=== PATIENT | female | born 1990 | race Hispanic/Latino ===

== ENCOUNTER 2019-01-29 17:42 | Emergency (ER) | payer SELFPAY ==
--- NOTE | 2019-01-29 18:46 | ER ---
Nurse's Notes [facility] Name: Francisca Dockery Age: 29 yrs Sex: Female : 1990 Arrival Date: 01/29/2019 Time: 17:45 Bed 12 Private MD: Diagnosis: Acute sinusitis Presentation: 01/29 17:45 Presenting complaint: Patient states: i have this sore throat, ear pain and fever that hj started 2 days ago; took TheraFlu daytime;. Transition of care: patient was not received from another setting of care. Onset of symptoms was January 29, 2019. Risk Assessment: Do you want to hurt yourself or someone else? Patient reports no desire to harm self or others. Initial Sepsis Screen: Does the patient meet any 2 criteria? No. Patient's initial sepsis screen is negative. Does the patient have a suspected source of infection? No. Patient's initial sepsis screen is negative. Care prior to arrival: None. 17:45 Method Of Arrival: Ambulatory 17:45 Acuity: CHEN 4 hj Triage Assessment: 17:45 General: Appears in no apparent distress. uncomfortable, Behavior is calm, cooperative, hj appropriate for age. 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 - Social history:: Smoking status: Patient/guardian denies using tobacco, Patient/guardian denies using alcohol. - Ebola Screening: : Patient negative for fever greater than or equal to 101.5 degrees Fahrenheit, and additional compatible Ebola Virus Disease symptoms Patient denies exposure to infectious person Patient denies travel to an Ebola-affected area in the 21 days before illness onset. Screenin:45 Abuse screen: Denies threats or abuse. Denies injuries from another. Nutritional hj screening: No deficits noted. Tuberculosis screening: No symptoms or risk factors identified. Fall Risk None identified. Assessment: 17:45 Pain: Complains of pain in throat. Respiratory: Airway is patent Respiratory effort is hj even, unlabored, Respiratory pattern is regular, symmetrical, Breath sounds are clear. EENT: Throat. Vital Signs: 17:47 BP 109 / 63; Pulse 101; Resp 18; Temp 99.0(TE); Pulse Ox 99% on R/A; Weight 55.79 kg; hj Height 5 ft. 0 in. (152.40 cm); Pain 8/10; 17:47 Body Mass Index 24.02 (55.79 kg, 152.40 cm) hj ED Course: 17:45 Patient arrived in ED. mr 17:45 Patient has correct armband on for positive identification. Bed in low position. Call hj light in reach. Side rails up X 1. 17:46 [facility]C [facility]. kb 17:46 Darien Richmond MD is Attending Physician. kb 17:46 Triage completed. hj 17:47 Arm band placed on right wrist. hj 18:10 Salo Ponce, RN is Primary Nurse. hj 18:48 No provider procedures requiring assistance completed. Patient did not have IV access hj during this emergency room visit. Administered Medications: No medications were administered Outcome: 18:46 Discharge ordered by MD. kb 18:48 Discharged to home ambulatory. hj 18:48 Condition: stable 18:48 Discharge instructions given to patient, Instructed on discharge instructions, follow up and referral plans. medication usage, Demonstrated understanding of instructions, follow-up care, medications, Prescriptions given X 1. 18:51 Patient left the ED. Signatures: Anna Story FNP-C FNP-Meño Ni Marcus mr Salo Ponce, RN RN hj Corrections: (The following items were deleted from the chart) 17:49 17:47 Pulse 101bpm; Resp 18bpm; Pulse Ox 99% RA; Temp 99.0F Temporal; 55.79 kg; Height hj 5 ft. 0 in.; BMI: 24.0; Pain 8/10; hj
--- NOTE | 2019-01-29 18:46 | EDPHYS ---
Physician Documentation [facility] Name: Francisca Dockery Age: 29 yrs Sex: Female : 1990 Arrival Date: 01/29/2019 Time: 17:45 Bed 12 Private MD: ED Physician Darien Richmond HPI: 01/29 20:11 This 29 yrs old Female presents to ER via Ambulatory with complaints of Sore kb Throat, Ear Pain, Fever. 20:11 The patient presents with sore throat. The patient describes throat pain as constant. kb Onset: The symptoms/episode began/occurred 3 day(s) ago, and became worse today. Severity of symptoms: At their worst the symptoms were moderate, in the emergency department the symptoms are unchanged. Modifying factors: The symptoms are alleviated by nothing, the symptoms are aggravated by swallowing, Patient's oral intake status: limited fluid intake, limited food intake. Associated signs and symptoms: Pertinent positives: chills, earache, nausea, rhinorrhea, Sore throat vomiting. The patient has not experienced similar symptoms in the past. The patient has not recently seen a physician. 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 - Social history:: Smoking status: Patient/guardian denies using tobacco, Patient/guardian denies using alcohol. - Ebola Screening: : Patient negative for fever greater than or equal to 101.5 degrees Fahrenheit, and additional compatible Ebola Virus Disease symptoms Patient denies exposure to infectious person Patient denies travel to an Ebola-affected area in the 21 days before illness onset. ROS: 20:11 Neck: Negative for injury, pain, and swelling, Cardiovascular: Negative for chest pain, kb palpitations, and edema, Respiratory: Negative for shortness of breath, cough, wheezing, and pleuritic chest pain, Back: Negative for injury and pain, : Negative for injury, bleeding, discharge, and swelling, MS/Extremity: Negative for injury and deformity, Skin: Negative for injury, rash, and discoloration, Neuro: Negative for headache, weakness, numbness, tingling, and seizure. 20:11 Constitutional: Positive for body aches, chills, fatigue, malaise. 20:11 ENT: Positive for ear pain, rhinorrhea, sore throat. 20:11 Abdomen/GI: Positive for nausea and vomiting, Negative for abdominal pain, diarrhea, constipation, abdominal cramps, abdominal distension, anorexia. Exam: 20:11 Constitutional: This is a well developed, well nourished patient who is awake, alert, kb and in no acute distress. Head/Face: Normocephalic, atraumatic. ENT: Nares patent. No nasal discharge, no septal abnormalities noted. Tympanic membranes are normal and external auditory canals are clear. Oropharynx with no redness, swelling, or masses, exudates, or evidence of obstruction, uvula midline. Mucous membranes moist. Neck: Trachea midline, no thyromegaly or masses palpated, and no cervical lymphadenopathy. Supple, full range of motion without nuchal rigidity, or vertebral point tenderness. No Meningismus. Chest/axilla: Normal chest wall appearance and motion. Nontender with no deformity. No lesions are appreciated. Cardiovascular: Regular rate and rhythm with a normal S1 and S2. No gallops, murmurs, or rubs. Normal PMI, no JVD. No pulse deficits. Respiratory: Lungs have equal breath sounds bilaterally, clear to auscultation and percussion. No rales, rhonchi or wheezes noted. No increased work of breathing, no retractions or nasal flaring. Abdomen/GI: Soft, non-tender, with normal bowel sounds. No distension or tympany. No guarding or rebound. No evidence of tenderness throughout. Skin: Warm, dry with normal turgor. Normal color with no rashes, no lesions, and no evidence of cellulitis. MS/ Extremity: Pulses equal, no cyanosis. Neurovascular intact. Full, normal range of motion. Neuro: Awake and alert, GCS 15, oriented to person, place, time, and situation. Cranial nerves II-XII grossly intact. Motor strength 5/5 in all extremities. Sensory grossly intact. Cerebellar exam normal. Normal gait. Vital Signs: 17:47 BP 109 / 63; Pulse 101; Resp 18; Temp 99.0(TE); Pulse Ox 99% on R/A; Weight 55.79 kg; hj Height 5 ft. 0 in. (152.40 cm); Pain 03/01; 17:47 Body Mass Index 24.02 (55.79 kg, 152.40 cm) hj MDM: 17:56 Patient medically screened. kb 18:45 Data reviewed: vital signs, nurses notes. Data interpreted: Pulse oximetry: on room air kb is 99 %. Interpretation: normal. Counseling: I had a detailed discussion with the patient and/or guardian regarding: the historical points, exam findings, and any diagnostic results supporting the discharge/admit diagnosis, lab results, the need for outpatient follow up, a family practitioner, to return to the emergency department if symptoms worsen or persist or if there are any questions or concerns that arise at home. 01/29 17:49 Order name: Flu; Complete Time: 18:45 01/29 17:49 Order name: Strep; Complete Time: 18:30 01/29 18:26 Order name: Throat Culture EDMS Administered Medications: No medications were administered Disposition: 01/30 07:33 Co-signature as Attending Physician, Darien Richmond MD I agree with the assessment and kdr plan of care. Disposition: 01/29/19 18:46 Discharged to Home. Impression: Acute sinusitis. - Condition is Stable. - Discharge Instructions: Sinusitis, Adult, [id number]. - Prescriptions for Zofran 4 mg Oral Tablet - take 1 tablet by ORAL route every 6 hours As needed; 20 tablet. - Medication Reconciliation Form, Thank You Letter, Antibiotic Education, Prescription Opioid Use form. - Follow up: Emergency Department; When: As needed; Reason: Worsening of condition. Follow up: Private Physician; When: 2 - 3 days; Reason: Recheck today's complaints, Continuance of care, Re-evaluation by your physician. Signatures: Dispatcher [employer] EDMS Anna Story, Darien Velasquez MD MD [facility] Salo Ponce RN RN hj Corrections: (The following items were deleted from the chart) 01/29 18:51 18:46 01/29/2019 18:46 Discharged to Home. Impression: Acute sinusitis. Condition is hj Stable. Forms are Medication Reconciliation Form, Thank You Letter, Antibiotic Education, Prescription Opioid Use. Follow up: Emergency Department; When: As needed; Reason: Worsening of condition. Follow up: Private Physician; When: 2 - 3 days; Reason: Recheck today's complaints, Continuance of care, Re-evaluation by your physician. kb
[2019-01-29 19:06] VITALS: BP 109/63; TEMP 99; O2SAT 99
== END 2019-01-29 18:51 | disposition home or self-care (01) ==
LOC: ER 17:42
DX: J01.90 Acute sinusitis, unspecified (principal)
CPT/HCPCS: 87070; 87081; 87804; 99282

== ENCOUNTER 2020-04-25 04:23 | Emergency (ER) | payer OTHER, SELFPAY ==
[2020-04-25 05:13] LABS: Urine Appearance CLOUDY; Urine Bilirubin NEGATIVE (NEG); Urine Blood 3+ (NEG); Urine Color YELLOW; Urine Glucose NEGATIVE (NEG); Urine Protein TRACE (NEG); Urine Specific Gravity 1.025 (1.005-1.030)
[2020-04-25 05:15] LABS: Urine Microscopic Reflex ORDER UMIC
[2020-04-25 05:34] LABS: Basophils % 0.7 % (0-1.3); Hematocrit 36.5 % (36.0-45.0); Lymphocytes % 42.6 % (15.3-44.8); RBC Red Blood Cell Count 3.79 M/uL (3.86-4.86)
[2020-04-25 05:51] LABS: Urine Bacteria 20-50 /HPF (<20); Urine Culture Reflex Order REFLEXED; Urine Mucus 1+ /HPF (NONE SEEN); Urine Yeast FEW (NONE SEEN)
[2020-04-25 05:57] LABS: BUN Blood Urea Nitrogen 10 mg/dL (7-18); Bicarbonate 26 mmol/L (21-32); Glucose Level 91 mg/dL (74-106); HCG, Quantitative 9233 mIU/mL (1-3); Potassium 3.5 mmol/L (3.5-5.1); Sodium Level 140 mmol/L (136-145)
--- NOTE | 2020-04-25 06:34 | EDPHYS ---
Physician Documentation [facility] Name: Francisca Dockery Age: 30 yrs Sex: Female : 1990 Arrival Date: 04/25/2020 Time: 04:27 Bed 17 Private MD: ED Physician Ge Guevara HPI: 04/25 05:00 This 30 yrs old Female presents to ER via Ambulatory with complaints of mh7 Vaginal Bleeding, Cramping, +10 wks preg. 05:00 The patient presents with vaginal bleeding that is light. Onset: The symptoms/episode mh7 began/occurred yesterday. Modifying factors: The symptoms are alleviated by nothing, the symptoms are aggravated by nothing. Associated signs and symptoms: Pertinent positives: cramping, vaginal bleeding, Pertinent negatives: constipation, diarrhea, dyspareunia, dysuria, fever, hematuria, nausea, urinary frequency, vaginal discharge, vomiting. Severity of symptoms: At their worst the symptoms were moderate, earlier today, in the emergency department the symptoms have improved, moderately. 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 - Social history:: Smoking status: Patient denies any tobacco usage or history of. ROS: 05:00 Constitutional: Negative for fever, chills, and weight loss, Eyes: Negative for injury, mh7 pain, redness, and discharge, ENT: Negative for injury, pain, and discharge, Neck: Negative for injury, pain, and swelling, Cardiovascular: Negative for chest pain, palpitations, and edema, Respiratory: Negative for shortness of breath, cough, wheezing, and pleuritic chest pain, Abdomen/GI: Negative for abdominal pain, nausea, vomiting, diarrhea, and constipation, Back: Negative for injury and pain, MS/Extremity: Negative for injury and deformity, Skin: Negative for injury, rash, and discoloration, Neuro: Negative for headache, weakness, numbness, tingling, and seizure, Psych: Negative for depression, anxiety, suicide ideation, homicidal ideation, and hallucinations, Allergy/Immunology: Negative for hives, rash, and allergies, Endocrine: Negative for neck swelling, polydipsia, polyuria, polyphagia, and marked weight changes, Hematologic/Lymphatic: Negative for swollen nodes, abnormal bleeding, and unusual bruising. Exam: 05:00 Constitutional: This is a well developed, well nourished patient who is awake, alert, mh7 and in no acute distress. Head/Face: Normocephalic, atraumatic. Eyes: Pupils equal round and reactive to light, extra-ocular motions intact. Lids and lashes normal. Conjunctiva and sclera are non-icteric and not injected. Cornea within normal limits. Periorbital areas with no swelling, redness, or edema. Neck: Trachea midline, no thyromegaly or masses palpated, and no cervical lymphadenopathy. Supple, full range of motion without nuchal rigidity, or vertebral point tenderness. No Meningismus. Chest/axilla: Normal chest wall appearance and motion. Nontender with no deformity. No lesions are appreciated. Cardiovascular: Regular rate and rhythm with a normal S1 and S2. No gallops, murmurs, or rubs. Normal PMI, no JVD. No pulse deficits. Respiratory: Lungs have equal breath sounds bilaterally, clear to auscultation and percussion. No rales, rhonchi or wheezes noted. No increased work of breathing, no retractions or nasal flaring. Abdomen/GI: Soft, non-tender, with normal bowel sounds. No distension or tympany. No guarding or rebound. No evidence of tenderness throughout. Back: No spinal tenderness. No costovertebral tenderness. Full range of motion. Skin: Warm, dry with normal turgor. Normal color with no rashes, no lesions, and no evidence of cellulitis. MS/ Extremity: Pulses equal, no cyanosis. Neurovascular intact. Full, normal range of motion. Neuro: Awake and alert, GCS 15, oriented to person, place, time, and situation. Cranial nerves II-XII grossly intact. Motor strength 5/5 in all extremities. Sensory grossly intact. Cerebellar exam normal. Normal gait. Psych: Awake, alert, with orientation to person, place and time. Behavior, mood, and affect are within normal limits. 05:38 : CVA tenderness, is absent, Pelvic Exam: External exam: is normal, Speculum exam: mh7 scant bleeding, no cervicitis, os that is closed, no tissue in cervix is seen, no tissue in vagina is seen, bimanual exam reveals no cervical motion tenderness, os that is closed, gravid uterus, no uterine tenderness, no adnexa tenderness or masses bilaterally, discharge, is not appreciated, the nurse was present for the exam, Gravid exam: Bladder: is normal, Rectal exam: is refused by patient or guardian. Vital Signs: 04:39 BP 106 / 88; Pulse 90; Resp 18; Temp 98.1; Pulse Ox 99% ; Weight 51.26 kg; Height 5 ft. ea (152.40 cm); 04:48 BP 106 / 88; Pulse 80; Resp 18; Temp 98.1; Pulse Ox 99% on R/A; ll2 05:45 BP 100 / 62; Pulse 66; Resp 17; Pulse Ox 97% on R/A; ll2 06:27 BP 106 / 69; Pulse 99; Resp 18; Pulse Ox 98% on R/A; ll2 04:39 Body Mass Index 22.07 (51.26 kg, 152.40 cm) ea MDM: 04:57 Patient medically screened. mh7 06:35 Differential diagnosis: ectopic , Data reviewed: vital signs, nurses notes, arabella lab test result(s), radiologic studies, ultrasound. Data interpreted: quality assurance monitor body: rate is 99 beats/min, rhythm is regular, Pulse oximetry: on room air is 98 %. Counseling: I had a detailed discussion with the patient and/or guardian regarding: the historical points, exam findings, and any diagnostic results supporting the discharge/admit diagnosis, lab results, radiology results, the need for outpatient follow up, for definitive care, an OB/Gyne specialist. 04/25 04:57 Order name: Abo/rh Typing; Complete Time: 05:47 mh7 04/25 04:57 Order name: Basic Metabolic Panel; Complete Time: 05:58 mh7 04/25 04:57 Order name: CBC with Diff; Complete Time: 05:38 mh7 04/25 04:57 Order name: HCG-Quantitative; Complete Time: 05:58 mh7 04/25 04:58 Order name: Urinalysis; Complete Time: 05:58 lp1 04/25 05:17 Order name: Urine Microscopic Only; Complete Time: 05:58 [facility] 04/25 04:57 Order name: IV Saline Lock; Complete Time: 05:16 [facility] 04/25 04:57 Order name: Labs collected and sent; Complete Time: 05:16 [facility] 04/25 04:57 Order name: NPO; Complete Time: 05:16 [facility] 04/25 04:57 Order name: Urine Dipstick-Ancillary (obtain specimen); Complete Time: 05:16 [facility] 04/25 05:53 Order name: Urine Culture [facility] 04/25 06:31 Order name: Matter Eval Tm 1 [facility] 04/25 04:58 Order name: Urine Test (obtain specimen); Complete Time: 05:16 lp1 Administered Medications: 06:36 Drug: Rocephin 1 grams Route: IV; Rate: per protocol; Site: left antecubital; 2 06:36 Follow up: Response: No adverse reaction; IV Status: Completed infusion 2 Disposition: 04/25/20 06:34 Discharged to Home. Impression: Maternal care for intrauterine , Missed , Urinary tract infection, site not specified. - Condition is Stable. - Discharge Instructions: Incomplete Miscarriage, Miscarriage, Miscarriage, [id number]. - Prescriptions for Vitamin 27- 0.8 mg Oral Tablet - take 1 tablet by ORAL route once daily; 30 tablet. Augmentin 500- 125 mg Oral Tablet - take 1 tablet by ORAL route every 8 hours for 10 days; 21 tablet. - Medication Reconciliation Form, Thank You Letter, Antibiotic Education, Prescription Opioid Use form. - Follow up: Private Physician; When: 2 - 3 days; Reason: Recheck today's complaints, Continuance of care, Re-evaluation by your physician. Follow up: Leo Sheehan MD; When: 2 - 3 days; Reason: Recheck today's complaints, Re-evaluation by your physician. - Problem is new. - Symptoms have improved. Signatures: Dispatcher [employer] Ge Beltre MD MD cha Pena, Laura RN RN lp1 Danika Iniguez RN RN Mona Jurado RN RN 2 Alo Doll MD MD 7 Corrections: (The following items were deleted from the chart) 06:31 04:59 Transvaginal Ob+US.RAD.BRZ ordered. EDDC EDMS 06:37 06:34 04/25/2020 06:34 Discharged to Home. Impression: Maternal care for intrauterine arabella ; Missed . Condition is Stable. Forms are Medication Reconciliation Form, Thank You Letter, Antibiotic Education, Prescription Opioid Use. Follow up: Private Physician; When: 2 - 3 days; Reason: Recheck today's complaints, Continuance of care, Re-evaluation by your physician. Follow up: Leo Sheehan; When: 2 - 3 days; Reason: Recheck today's complaints, Re-evaluation by your physician. Problem is new. Symptoms have improved. arabella 06:49 06:37 04/25/2020 06:34 Discharged to Home. Impression: Maternal care for intrauterine ll2 ; Missed ; Urinary tract infection, site not specified. Condition is Stable. Discharge Instructions: Incomplete Miscarriage, Miscarriage, Miscarriage, [id number]. Prescriptions for Vitamin 27-0.8 mg Oral Tablet - take 1 tablet by ORAL route once daily; 30 tablet, Augmentin 500-125 mg Oral Tablet - take 1 tablet by ORAL route every 8 hours for 10 days; 21 tablet. and Forms are Medication Reconciliation Form, Thank You Letter, Antibiotic Education, Prescription Opioid Use. Follow up: Private Physician; When: 2 - 3 days; Reason: Recheck today's complaints, Continuance of care, Re-evaluation by your physician. Follow up: Leo Shehean; When: 2 - 3 days; Reason: Recheck today's complaints, Re-evaluation by your physician. Problem is new. Symptoms have improved. arabella
--- NOTE | 2020-04-25 06:34 | ER ---
Nurse's Notes [facility] Name: Francisca Dockery Age: 30 yrs Sex: Female : 1990 Arrival Date: 04/25/2020 Time: 04:27 Bed 17 Private MD: Diagnosis: Maternal care for intrauterine ;Missed ;Urinary tract infection, site not specified Presentation: 04/25 04:39 Chief complaint: Patient states: Pt reports she had pink mucus discharge yesterday, ea reports tonight it changed to brownish red and has mild cramping. Pt reports she is 10 weeks and 5 days . Coronavirus screen: At this time, the client does not indicate any symptoms associated with coronavirus-19. Ebola Screen: No symptoms or risks identified at this time. Initial Sepsis Screen: Does the patient meet any 2 criteria? No. Patient's initial sepsis screen is negative. Does the patient have a suspected source of infection? No. Patient's initial sepsis screen is negative. Risk Assessment: Do you want to hurt yourself or someone else? Patient reports no desire to harm self or others. Onset of symptoms was April 25, 2020. 04:39 Method Of Arrival: Ambulatory ea 04:39 Acuity: CHEN 3 ea Triage Assessment: 04:42 General: Appears in no apparent distress. Behavior is appropriate for age. Pain: ea Complains of pain in suprapubic area Pain currently is 2 out of 10 on a pain scale. Quality of pain is described as crampy. Neuro: Level of Consciousness is awake, alert, obeys commands, Oriented to person, place, time. : Reports vaginal bleeding that is brown. 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 - Social history:: Smoking status: Patient denies any tobacco usage or history of. Screenin:42 Abuse screen: Denies threats or abuse. Nutritional screening: No deficits noted. ea Tuberculosis screening: No symptoms or risk factors identified. Fall Risk None identified. Assessment: 04:45 General: Appears in no apparent distress. Behavior is calm, cooperative, appropriate ll2 for age. Pain: Complains of pain in right lower quadrant and left lower quadrant Pain currently is 4 out of 10 on a pain scale. Quality of pain is described as crampy. Neuro: Level of Consciousness is awake, alert, obeys commands, Oriented to person, place, time, situation. Cardiovascular: Capillary refill < 3 seconds Patient's skin is warm and dry. Respiratory: Airway is patent Respiratory effort is even, unlabored, Respiratory pattern is regular, symmetrical. GI: No signs and/or symptoms were reported involving the gastrointestinal system. : Reports vaginal bleeding that is bright red, since 1X today. EENT: No signs and/or symptoms were reported regarding the EENT system. Derm: Skin is intact, is healthy with good turgor, Skin is dry, Skin is pink, warm \T\ dry. Skin temperature is warm. Musculoskeletal: Circulation, motion, and sensation intact. Range of motion: intact in all extremities. 06:27 Reassessment: ERD to bedside discussing miscarriage with pt. ll2 Vital Signs: 04:39 BP 106 / 88; Pulse 90; Resp 18; Temp 98.1; Pulse Ox 99% ; Weight 51.26 kg; Height 5 ft. ea (152.40 cm); 04:48 BP 106 / 88; Pulse 80; Resp 18; Temp 98.1; Pulse Ox 99% on R/A; ll2 05:45 BP 100 / 62; Pulse 66; Resp 17; Pulse Ox 97% on R/A; ll2 06:27 BP 106 / 69; Pulse 99; Resp 18; Pulse Ox 98% on R/A; ll2 04:39 Body Mass Index 22.07 (51.26 kg, 152.40 cm) ea ED Course: 04:27 Patient arrived in ED. bp1 04:42 Triage completed. ea 04:43 Alo Doll MD is Attending Physician. 7 04:43 Arm band placed on right wrist. Patient placed in an exam room, on a stretcher, on ea pulse oximetry. 04:43 Patient has correct armband on for positive identification. Bed in low position. Call ea light in reach. Side rails up X 1. 04:45 Linscombe, Mona, RN is Primary Nurse. ll2 05:17 Initial lab(s) drawn, by ri, sent to lab. Urine collected: clean catch specimen, clear. ll2 Inserted saline lock: in left antecubital area, using aseptic technique. Blood collected. 05:39 Assist provider with pelvic exam: Set up pelvic tray. Performed by Alo Doll MD ll2 Patient tolerated well. 06:21 Attending Physician role handed off by [facility]o [facility] MD [facility] 06:21 Ge Guevara MD is Attending Physician. [facility] 06:30 Ultrasound completed. Patient tolerated well. Notified ED Physician krys. [email or web address] 06:31 Matter Eval Tm 1 In Process Unspecified. EDTX 06:33 Leo Sheehan MD is Referral Physician. [facility] 06:36 Urine Culture Sent. ll2 06:48 IV discontinued, intact, bleeding controlled, No redness/swelling at site. Pressure ll2 dressing applied. Administered Medications: 06:36 Drug: Rocephin 1 grams Route: IV; Rate: per protocol; Site: left antecubital; ll2 06:36 Follow up: Response: No adverse reaction; IV Status: Completed infusion ll2 Outcome: 06:34 Discharge ordered by . arabella 06:48 Discharged to home ambulatory. ll2 06:48 Condition: stable 06:48 Discharge instructions given to patient, Instructed on discharge instructions, follow up and referral plans. medication usage, Demonstrated understanding of instructions, follow-up care, medications, Prescriptions given X 2. 06:49 Patient left the ED. ll2 Signatures: Dispatcher [employer] EDTX Ge Guevara MD MD cha Antunez, Elena RN Juana Torres ea 3 Mona Hunt, CANDICE RN 2 Michelle Wiseman Maurice, MD MD [facility]
[2020-04-25] MEDS ORDERED: CEFTRIAXONE/SWI 1gm 1 GM/10 ML SYR ONE (06:42)
[2020-04-25 06:56] VITALS: TEMP 98.1
[2020-04-25 07:00] VITALS: BP 106/69; O2SAT 98
--- NOTE | 2020-04-25 11:38 | RAD REPORT ---
EXAM DESCRIPTION: US - Matter Alisha Tm 1 - 04/25/2020 6:31 am CLINICAL HISTORY: VAGINAL BLEEDING Early . COMPARISON: TRANSVAGINALOB dated 08/01/2013 FINDINGS: A single gestational sac is seen within the uterus. The sac shape is somewhat irregular. W ithin the sac is a single pole with crown-rump length of 3 cm, correlating to estimated gestati onal age of 9 weeks 3 days. Despite prolonged sonographic assessment, no cardiac activity could be identified. The placenta is not yet developed / visualized due to early gestational age. The maternal adnexa are within normal limits. The right ovary was obscured by bowel gas. IMPRESSION: The findings are most compatible with first trimester embryonic demise.
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
--- OUTSIDE RECORDS SUMMARY | 2020-04-29 00:21 | XMS REPORT | Summary of Care ---
:1990 Author Organization [facility] Address [address] [place] [address] Care Team Providers Name Role Phone Pcp, Patient Does Not Have A Primary Care Provider +1-000-00 0-0000 Reason for Visit Reason Comments NURSE VISIT Encounter Details Date Type Department Care Team Description 02/24/2020 Nurse Visit [facility]- Lexii Wooten ly N, ADOPTION WORKER [address] [place] [address] Missed menses (Primary Sab[place] Visit, [facility] Nurse Dx) [address] [place] [address] Allergies Not on Filedocumented as of this encounter (statuses as of 02/24/2020) Medications Not on filedocumented as of this encounter (statuses as of 02/24/2020) Active Problems Not on filedocumented as of this encounter (statuses as of 02/24/2020) Social History Tobacco Use Types Packs/Day Years Used Date Never Assessed Sex Assigned at Date Recorded Not on file documented as of this encounter Last Filed Vital Signs Vital Sign Reading Time Taken Comments Blood Pressure 114/70 02/24/2020 1:49 PM CDT Pulse 81 02/24/2020 1:49 PM CDT Temperature 36.3 C (97.4 F) 02/24/2020 1:49 PM CDT Respiratory Rate 18 02/24/2020 1:49 PM CDT Oxygen Saturation - - Inhaled Oxygen Concentration - - Weight 53.1 kg (117 lb 2 oz) 02/24/2020 1:49 PM CDT Height 152.4 cm (5') 02/24/2020 1:49 PM CDT Body Mass Index 22.87 02/24/2020 1:49 PM CDT documented in this encounter Progress Notes Inga Separ LVN - 02/24/2020 1:30 PM CDTMercatul Dockery is a 30 year old female Patient here for NOB, UPT negative, LMP 01/24/2020. Patient stated she had a positive UPT at home, informed she might be too early in . Advised to repeat UPT at home in 1 week and if positive tomake NOB appointment, verbalized understanding. documented in this encounter Plan of Treatment Health Maintenance Due Date Last Done Comments VARICELLA VACCINES ( of 2 - 01/24/1993 2-dose childhood series) Depression Screening 2004 DTaP,Tdap,and Td Vaccines (1 - 01/24/2011 Tdap) PAP SMEAR 01/24/2013 INFLUENZA VACCINE (#1) 2020 PNEUMOCOCCAL 0-64 YEARS COMBINED Aged Out No longer eligible based on SERIES patient's age to complete this topic documented as of this encounter Procedures Procedure Name Priority Date/Time Associated Diagnosis Comme nts POCT TEST Routine 02/24/2020 1:55 PM Missed menses Results for this CDT procedure are i n the results section. documented in this encounter Results POCT TEST (02/24/2020 1:55 PM CDT) Pathologist Sig nature POCT PREG Negative On board controls acceptable Yes with C Line POCT PREG LOT # POCT PREG TEST DATE Specimen Urine - URINE, CLEAN CATCH documented in this encounter Visit Diagnoses Diagnosis Missed menses - Primary Absence of menstruation documented in this encounter
--- OUTSIDE RECORDS SUMMARY | 2020-04-29 00:21 | XMS REPORT | Continuity of Care Document ---
:1990 Author Organization [facility] t Address [address] [place] [address] Care Team Providers Name Role Phone Rosalia Young MD Attending Clinician Rayna French Attending Clinician Ultrasound Attending Clinician Unavailable Amarilys ZAFAR Attending Clinician Doctor Unassigned, Name Attending Clinician Unavailable Arie Alcocer Attending Clinician Problems This patient has no known problems. Allergies, Adverse Reactions, Alerts This patient has no known allergies or adverse reactions. Medications This patient has no known medications. Procedures This patient has no known procedures. Encounters Start End Encounter Admission Attending Care Care Encounter Source Date/Time Date/Time Type Type Clinicians Facility Department ID 2020-04-27 2020-04-27 Routine Rosalia Young [facility] [id number] 09:33:14 11:27:48 Nino Mosquera [id number] Visit [place] [id number] [facility] [id number] [address] 2020-04-25 2020-04-25 Emergency Meli [facility] [id number] 14:42:00 18:12:00 Andria Mosquera [id number] [place] [id number] [place] [id number] 2020-04-14 2020-04-14 Tuck Pointer Helper Ultrasound, [facility] [id number] 15:08:30 15:49:33 Visit Kojo CUSTOMER SERVICE TECHNICIAN [id number] REGIONAL [id number] MATERNAL [id number] & CHILD 369 [facility] 2020-04-05 2020-04-05 Case Amarilys [facility] [id number] 00:00:00 00:00:00 Management Christiana Elyton [id number] [place] [id number] Professio [id number] [address] 2020-04-01 2020-04-01 Initial Rosalia Young [facility] [id number] 11:17:26 12:13:40 Nino Eveline [id number] Visit [place] [id number] Professio [id number] [address] 2020-04-01 2020-04-01 Orders Doctor BRET [id number] 00:00:00 00:00:00 Only Unassigned, JUAN [id number] [place] [facility] [id number] 2020-03-24 2020-03-24 Telephone Tim [facility] [id number] 00:00:00 00:00:00 Kylie Sargent CUSTOMER SERVICE TECHNICIAN [id number] [facility] [id number] MATERNAL [id number] & CHILD 107 [facility] 2020-03-10 2020-03-10 Orders Doctor BRET [id number] 00:00:00 00:00:00 Only Unassigned, JUAN [id number] [place] [facility] [id number] [id number] Results This patient has no known results.
--- OUTSIDE RECORDS SUMMARY | 2020-04-29 00:21 | XMS REPORT | Summary of Care ---
:1990 Author Organization [facility] - Health Address [address] [place] [address] Care Team Providers Name Role Phone Pcp, Patient Does Not Have A Primary Care Provider +1-000-00 0-0000 Encounter Details Date Type Department Care Team Description 02/24/2020 Orders Only [facility] Doctor Unassigned, No [address] [facility] [place] [address] [address] [place] [address] Allergies Not on Filedocumented as of this [...] of this encounter Last Filed Vital Signs Not on filedocumented in this encounter Plan of Treatment Date Type Specialty Care Team Description 02/24/2020 Initial Visit [facility] Lisa Wooten, GENERAL ACTIVITIES THERAPIST [address] [place], [place] [address] [phone] Health Maintenance Due Date Last Done Comments VARICELLA VACCINES (1 of 2 - 01/24/1993 2-dose childhood series) Depression Screening 2004 DTaP,Tdap,and Td Vaccines (1 - 01/24/2011 Tdap) PAP SMEAR 01/24/2013 INFLUENZA VACCINE (#1) 2020 PNEUMOCOCCAL 0-64 YEARS COMBINED Aged Out No longer eligible based on SERIES patient's age to complete this topic documented as of this encounter Procedures Procedure Name Priority Date/Time Associated Diagnosis Comme nts ASSIGNMENT OF BENEFITS Routine 02/24/2020 1:09 PM CDT documented in this encounter Results Not on filedocumented in this encounter Insurance Payer Benefit Plan / Subscriber ID Effective Phone Address T e Group Dates MEDICAID MEDICAID PENDING 2020-[address] P[place] [address] documented as of this encounter
--- OUTSIDE RECORDS SUMMARY | 2020-04-29 00:22 | XMS REPORT | Summary of Care ---
:1990 Author Organization [facility] Address [address] [place] [address] Care Team Providers Name Role Phone Kylie Dumont Primary Care Provider Reason for Referral (Routine) Status Reason Specialty Diagnoses / Referred By Referred To Procedures Contact Contact New Request Maternal Diagnoses Supervision of high risk in first trimester Kylie Dumont Medicine Procedures CONSULT MATERNAL MEDICINE ULTRASOUND Preferred Location: [facility] [address] [place] [address] Reason for Visit Reason Comments Appointment Encounter Details Date Type Department Care Team Description 03/24/[address] [facility] Kylie Marshall FNP Appointment [address] [facility] [address] [place] [address] [place] [address] [phone] Allergies No Known Allergiesdocumented as of this encounter (statuses as of 03/24/2020) Medications Medication Sig Dispensed Refills Start Date End Date Status vit Take 1 Packet by 30 Each 6 03/24/2020 Active 07-hcga-cdzox-dha mouth daily. (SELECT-OB + DHA) 29 mg iron-1 mg -250 mg combo packIndications: Supervision of high risk in first trimester documented as of this encounter (statuses as of 03/24/2020) Active Problems Problem Noted Date Supervision of high risk in first trimester 03/10/2020 Primigravida in first trimester 03/10/2020 Nausea 03/10/2020 Screening for viral disease 03/10/2020 Estimated Date of Delivery Comments Yes 10/30/2020 Based on last menstr ual period of 01/24/2020 (Exact Date) documented as of this encounter (statuses as of 03/24/2020) Social History Tobacco Use Types Packs/Day Years Used Date Former Smoker Quit: 02/19/20 20 Smokeless Tobacco: Former User Alcohol Use Drinks/Week oz/Week Comments Not Currently Estimated Date of Delivery Comments Yes 10/30/2020 Based on last menstr ual period of 01/24/2020 (Exact Date) Sex Assigned at Date Recorded Not on file COVID-19 Exposure Response Date Recorded In the last month, have you been in contact with No / Unsure 03/12/2020 9:22 AM CDT someone who was confirmed or suspected to have Coronavirus / COVID-19? documented as of this encounter Last Filed Vital Signs Not on filedocumented in this encounter Miscellaneous Notes Telephone Encounter - Inga Spear LVN - 03/24/2020 8:22 AM Princessmeli Dockery is a 30 year old female Patient informed of USG orders and pnv sent to pharmacy. Number given to USG department, verbalized understanding. elephone Encounter - Kylie Dumont FNP - 03/24/2020 8:19 AM CDTPlease inform patient that her USG has been ordered. The USG department in [place] will call patient for appointment or patient call call herself at [phone]. Please inform patient that her vitamins have been called to her chosen Pharmacy. Patient should pick them up in 3 days or the Pharmacy will restock the vitamins. Telephone Encounter - Inga Spear LVN - 03/24/2020 7:55 AM Princessmeli Dockery is a 30 year old female Patient called stating her medicaid is active and needs USG order. documented in this encounter Plan of Treatment Date Type Specialty Care Team Description 04/07/2020 Routine Visit [facility] Arie Dumont, RESAW FEEDER [address] [place], [place] [address] [phone] Health Maintenance Due Date Last Done Comments INFLUENZA VACCINE (#1) 2020 DTaP,Tdap,and Td Vaccines (1 - 03/10/2021 P ostponed from 01/24/2011 Tdap) (Alternative Keanu delines) Depression Screening 03/10/2021 03/10/2020 PAP SMEAR 03/10/2023 03/10/2020 PNEUMOCOCCAL 0-64 YEARS COMBINED Aged Out No longer eligible based on SERIES patient's age to complete this topic documented as of this encounter Results Not on filedocumented in this encounter Visit Diagnoses Diagnosis Supervision of high risk in rst trimester - Primary Unspecified high-risk documented in this encounter Insurance Payer Benefit Plan / Subscriber ID Effective Dates Phone Addre ss Type Group [facility] MEDICAID OF [id number] 2020-Present [phone] Medicaid [place] [id number] [place] [address] documented as of this encounter Advance Directives Name Relationship Healthcare Agent Communication Relationship Kaitlin Aguirre Other Health Care Agent
--- OUTSIDE RECORDS SUMMARY | 2020-04-29 00:22 | XMS REPORT | Summary of Care ---
:1990 Author Organization [facility] Address [address] [place] [address] Care Team Providers Name Role Phone Kylie Dumont DELIVERY MAN Primary Care Provider Reason for Visit Reason Comments New OB Visit Encounter Details Date Type Department Care Team Description 03/10/2020 Initial [facility]- Kylie Dumont upervision of high risk in first trimester (Primary Dx); Visit [facility] Primigravida in first trimester; [address] [place] [address]; [address] [place] [address] [phone] Allergies No Known Allergiesdocumented as of this [...] in this encounter Progress Notes Kylie Dumont, DELIVERY MAN - 03/10/2020 9:45 AM CDT Chief complaint: [...] file Gets together: Not on file Attends pentecostal service: Not on file Active member of [...] mother, father, and siblings. No inside cats. Jain preference: Advent. Social History Substance and Sexual Activity Sexual Activity Not on file Comment: last sexual intercourse 03/09/2020 Genetic Screen Autism / Mental Retardation: No Coleen Disease: No Congenital Heart Defect: No Cystic Fibrosis: No Down Syndrome: No Familial Dysautonomia: No Hemophilia or other Blood Disorders: No [place] Chorea: No Maternal Metabolic Disorder--specify (eg. Type [...] age. Normal hair distribution. No labial lesion. Patient Registrar present for the exam: ROSALVA Alexander student [...] Normal Pelvic Exam: Vulva: Normal Vagina: Normal Patient Registrar present for the exam: ROSALVA Alexander student [...] reviewed with patient. documented in this encounter Miscellaneous Notes Addendum Note - Anand Silva - 03/10/2020 9:45 AM CDT Addended by: ANAND SILVA on: 03/10/2020 11:37 AM Modules accepted: Orders documented in this encounter Plan of Treatment Date Type Specialty Care Team Description 04/07/2020 Routine Visit [facility] Arie Dumont FNP [address] [place], [place] [address] [phone] Name Type Priority Associated Diagnoses Date/Ti me PAP Smear-Liquid Based LAB Routine Supervision of hig h risk 03/10/2020 11:37 AM in first CDT trimester GC & CHLAMYDIA AMPLIFIED LAB Routine Supervision of h igh risk 03/10/2020 11:37 AM ASSAY in first CDT trimester TRICHOMONAS AMPLIFIED LAB Routine Supervision of high risk 03/10/2020 11:37 AM ASSAY in first CDT trimester CBC WITH DIFF LAB Routine Supervision of high risk 11:25 AM in first CDT trimester HEPATITIS B SURFACE LAB Routine Supervision of high r isk 03/10/2020 11:25 AM ANTIGEN in first CDT trimester HIV 1/2 AG-AB WITH REFLEX LAB Routine Supervision of high risk 03/10/2020 11:25 AM in first CDT trimester RUBELLA SCREEN (KATY) LAB Routine Supervision of hig h risk 03/10/2020 11:25 AM IGG in first CDT trimester GALV ONLY - SYPHILIS LAB Routine Supervision of high risk 03/10/2020 11:25 AM IGG/IGM in first CDT trimester URINE CULTURE LAB Routine Supervision of high risk 11:37 AM in first CDT trimester VZV ANTIBODY SCREEN LAB Routine Supervision of high r isk 03/10/2020 11:25 AM in first CDT trimester Glucose 1 Hour Post LAB Routine Supervision of high r isk 03/10/2020 11:25 AM Prandial in first CDT trimester SARS-COV-2 IGG LAB Routine Screening for viral 2019 11:25 AM disease CDT Name Type Priority Associated Diagnoses Order S [...] 03/10/2020, Prandial in first Expires: 03/10/2021 trimester Health Maintenance Due Date Last Done Comments [...] T ype Group Dates MEDICAID MEDICAID PENDING 2020-[address] [place] [address] documented as of this encounter Advance Directives Name Relationship Healthcare Agent Communication Relationship Kaitlin Aguirre Other Health Care Agent "
--- OUTSIDE RECORDS SUMMARY | 2020-04-29 00:22 | XMS REPORT | Summary of Care ---
:1990 Author Organization [facility] Address [address] [place] [address] Care Team Providers Name Role Phone Kylie Dumont PUNCH FINISHER Primary Care Provider Reason for Visit Reason Comments LAB WORK Encounter Details Date Type Department Care Team Description 03/12/2020 Endoscopy Technican Visit [facility]- Gemma Dumont, PUNCH FINISHER [address] [place] [address] Abnormal maternal [place] [facility], [address] [place] [address] Allergies No Known Allergiesdocumented as of this encounter (statuses as of 03/12/2020) Medications No known medicationsdocumented as of this encounter (statuses as of 03/12/2020) Active Problems Problem Noted Date Supervision of high risk in first trimester 03/10/2020 Primigravida in first trimester 03/10/2020 Nausea 03/10/2020 Screening for viral disease 03/10/2020 Estimated Date of Delivery Comments Yes 10/30/2020 Based on last menstr ual period of 01/24/2020 (Exact Date) documented as of this encounter (statuses as of 03/12/2020) Social History Tobacco Use Types Packs/Day Years Used Date Former Smoker Quit: 02/19/20 Smokeless Tobacco: Former User Alcohol Use Drinks/Week [...] 04/07/2020 Routine Visit [facility] Arie Dumont, PUNCH FINISHER [address] [place], [place] [address] [phone] Name Type Priority Associated Diagnoses Date/Ti me 3 HR GLUCOSE TOLERANCE LAB Routine Abnormal maternal 03/12/2020 9:10 AM CDT PANEL glucose tolerance, antepartum GLUCOSE FASTING LAB Routine Abnormal maternal 020 9:10 AM CDT glucose tolerance, antepartum 1 HR GLUCOSE TOLERANCE LAB Routine Abnormal maternal 03/12/2020 9:15 AM CDT TEST glucose tolerance, antepartum 2 HR GLUCOSE TOLERANCE LAB Routine Abnormal maternal 03/12/2020 10:15 AM CDT TEST glucose tolerance, antepartum 3 HR GLUCOSE TOLERANCE LAB Routine Abnormal maternal 03/12/2020 11:15 AM CDT TEST glucose tolerance, antepartum Health Maintenance Due Date Last Done Comments [...] filedocumented in this encounter Visit Diagnoses Diagnosis Abnormal maternal glucose tolerance, ant epartum documented in this encounter Insurance Payer Benefit Plan / Subscriber ID Effective Phone Address T ype Group Dates MEDICAID MEDICAID PENDING 2020-[address] [place] [address] documented as of this encounter Advance Directives Name Relationship Healthcare Agent Communication Relationship Kaitlin Aguirre Other Health Care Agent
--- OUTSIDE RECORDS SUMMARY | 2020-04-29 00:22 | XMS REPORT | Summary of Care ---
:1990 Author Organization [facility] Address [address] [place] [address] Care Team Providers Name Role Phone Kylie Dumont [facility] Primary Care Provider Reason for Visit Reason Comments Abnormal Lab Abnormal 1 hr Encounter Details Date Type Department Care Team Description 03/11/2020 Telephone [facility]- Kylie Dumont, Ab normal Lab (Abnormal [facility] 1 hr ) [address] [facility] [address] [place] [address] [place], [place] [phone] [address] [phone] Allergies No Known Allergiesdocumented as of this encounter (statuses as of 03/11/2020) Medications No known medicationsdocumented as of this encounter (statuses as of 03/11/2020) Active Problems Problem Noted Date Supervision of high risk in first trimester 03/10/2020 Primigravida in first trimester 03/10/2020 Nausea 03/10/2020 Screening for viral disease 03/10/2020 Estimated Date of Delivery Comments Yes 10/30/2020 Based on last menstr ual period of 01/24/2020 (Exact Date) documented as of this encounter (statuses as of 03/11/2020) Social History Tobacco Use Types Packs/Day Years [...] this encounter Miscellaneous Notes Telephone Encounter - Kylie Dumont FNP - 03/11/2020 7:57 AM CDTPlease inform patient that her 1 hr GTT was abnormal. Patient needs to RTC for 3 hr GTT as soon as possible. . Please give patient 3 hr GTT instructions ie NPO after midnight. documented in this encounter Plan of Treatment Date Type Specialty Care Team Description 04/07/2020 Routine Visit [facility] Arie Dumont FNP [address] [place] [address] [phone] Name Type Priority Associated Diagnoses Order S chedule 3 HR GLUCOSE TOLERANCE LAB Routine Abnormal maternal glucose Expected: 03/11/2020, PANEL tolerance, antepartum s: 03/11/2021 Health Maintenance Due Date Last Done Comments [...] Diagnosis Abnormal maternal glucose tolerance, ant epartum - Primary documented in this encounter Insurance Payer Benefit Plan / Subscriber ID Effective Phone Address T e Group Dates MEDICAID MEDICAID PENDING 2020-[address] Pending [place] [address] documented as of this encounter Advance Directives Name Relationship Healthcare Agent Communication Relationship Kaitlin Aguirre Other Health Care Agent
--- OUTSIDE RECORDS SUMMARY | 2020-04-29 00:22 | XMS REPORT | Summary of Care ---
:1990 Author Organization [facility] Address [address] [place] [address] Care Team Providers Name Role Phone Kylie Dumont [facility] Primary Care Provider Reason for Visit Reason Comments Abnormal Lab Abnormal 1 hr Encounter Details Date Type Department Care Team Description 03/11/2020 Telephone [facility]- Kylie Dumont, Ab normal Lab (Abnormal [facility] 1 hr ) [address] [facility] [address] [place] [address] [place], [place] [phone] [address] [phone] Allergies No Known Allergiesdocumented as of this [...] this encounter Miscellaneous Notes Telephone Encounter - Tom Mejía RN - 03/11/2020 10:00 AM CDTNotified patient of lab results-abnormal 1 hr GTT. Instructions given on 3 hr GTT including fasting and length of test. Pt scheduled for tomorrow at 0800 per request. COVID screening negative and reviewed clinic guidelines. TOM MEJÍA RN 03/11/2020 10:01 AM Telephone Encounter - Kylie Dumont FNP - 03/11/2020 7:57 AM CDTPlease inform patient that her 1 hr GTT was abnormal. Patient needs to RTC for 3 hr GTT as soon as possible. . Please give patient 3 hr GTT instructions ie NPO after midnight. documented in this encounter Plan of Treatment Date Type Specialty Care Team Description 03/12/2020 Critical Care Unit Nurse Visit [facility] Lab, [facility] 04/07/2020 Routine Visit [facility] Arie Dumont FNP [address] [place] [address] [phone] Name Type Priority Associated Diagnoses Order S [...] T ype Group Dates MEDICAID MEDICAID PENDING 2020-[address] Pending [place] [address] documented as of this encounter Advance Directives Name Relationship Healthcare Agent Communication Relationship Kaitlin Aguirre Other Health Care Agent
--- OUTSIDE RECORDS SUMMARY | 2020-04-29 00:22 | XMS REPORT | Summary of Care ---
:1990 Author Organization [facility] Address [address] [place] [address] Care Team Providers Name Role Phone Kylie Dumont Primary Care Provider Reason for Referral (Routine) Status Reason Specialty Diagnoses / Referred By Referred To Procedures Contact Contact New Request Maternal Diagnoses Supervision of high risk in first trimester Kylie Dumont Medicine Procedures CONSULT MATERNAL MEDICINE ULTRASOUND Preferred Location: [facility] [address] [place] [address] Reason for Visit Reason Comments Appointment Encounter Details Date Type Department Care Team Description [facility] 110[address] [facility] [address] [place] [address] [address] [place] [address] [phone] Allergies No Known Allergiesdocumented as of this encounter (statuses as of 03/24/2020) Medications Medication Sig Dispensed Refills Start Date End Date Status vit Take 1 Packet by 30 Each 6 03/24/2020 Active 05-pyax-tarms-dha mouth daily. (SELECT-OB + DHA) 29 mg [...] Telephone Encounter - Kylie Dumont FNP - 03/24/2020 8:19 AM CDTPlease inform patient that her USG has been ordered. The USG department in [place] will call patient for appointment or patient call call herself at [phone]. Please inform patient that her vitamins have been called to her chosen Pharmacy. Patient should pick them up in 3 days or the Pharmacy will restock the vitamins. Telephone Encounter - Inga Spear LVN - 03/24/2020 7:55 AM ESATMabdirahman Sarkis is a 30 year old female Patient called stating her medicaid is active and needs USG order. documented in this encounter Plan of Treatment Date Type Specialty Care Team Description 04/07/2020 Routine Visit OB Satellites Arie Dumont FNP [address] [place], [place] [address] [phone] Health Maintenance Due Date Last Done Comments [...] Effective Dates Phone Addre ss Type Group [employer] MEDICAID OF [id number] 2020-Present [phone] [address] Medicaid [place] [address] [place] [address] documented as of this encounter Advance Directives Name Relationship Healthcare Agent Communication Relationship Kaitlin Aguirre Other Health Care Agent
--- OUTSIDE RECORDS SUMMARY | 2020-04-29 00:23 | XMS REPORT | Summary of Care ---
:1990 Author Organization [facility] Address [address] [place] [address] Care Team Providers Name Role Phone Ginny Dumontmari GOLD Primary Care Provider Reason for Visit Reason Comments New Medication Encounter Details Date Type Department Care Team Description 04/05/2020 Case Management [facility] Women's Christiana Panda N ew Medication Healthcare- [place] CHARISMA [address] [place] [address], [address] [place] [address] [address] [address] [place] [address] [phone] Allergies No Known Allergiesdocumented as of this encounter (statuses as of 04/05/2020) Medications Medication Sig Dispensed Refills Start Date End Date Status vit Take 1 Packet 30 Each 6 03/24/2020 Ac tive 37-oiev-jlhof-dha by mouth daily. (SELECT-OB + DHA) 29 mg iron-1 mg -250 mg combo packIndications: Supervision of high risk in first trimester Nitrofurantoin&Nit. Take 1 capsule 14 capsule 0 04/01/2020 Active Macrocryst (MACROBID) by mouth 2 100 mg (two) times capsuleIndications: daily. Dysuria metroNIDAZOLE 500 mg Take 1 tablet 14 tablet 0 04/05/2020 Active tabletIndications: BV by mouth every (bacterial vaginosis) 12 (twelve) hours. cephALEXin 500 mg Take 1 capsule 14 capsule 0 04/05/2020 Active capsuleIndications: by mouth 4 Urinary tract (four) times infection without daily. hematuria, site unspecified fluconazole 200 mg Take 1 tablet 1 tablet 0 04/05/20202019 Active tabletIndications: by mouth daily Vaginal jj for 1 day. documented as of this encounter (statuses as of 04/05/2020) Active Problems Problem Noted Date Normal , first 03/10/2020 Nausea 03/10/2020 Screening for viral disease 03/10/2020 Estimated Date of Delivery Comments Yes 11/17/2020 Based on Ultrasound documented as of this encounter (statuses as of 04/05/2020) Resolved Problems Problem Noted Date Resolved Date Primigravida in first trimester 03/10/2020 04/01/20 documented as of this encounter (statuses as of 04/05/2020) Social History Tobacco Use Types Packs/Day Years Used Date Former Smoker Quit: 02/19/20 Smokeless Tobacco: Former User Alcohol Use Drinks/Week oz/Week Comments Not Currently Estimated Date of Delivery Comments Yes 11/17/2020 Based on Ultrasound Sex Assigned at Date Recorded Not on file COVID-19 Exposure Response Date Recorded In the last month, have you been in contact with No / Unsure 04/01/2020 11:17 AM CDT someone who was confirmed or suspected to have Coronavirus / COVID-19? documented as of this encounter Last Filed Vital Signs Not on filedocumented in this encounter Plan of Treatment Date Type Specialty Care Team Description 04/07/2020 Routine Visit OB Satellites Kylie Dumont, BUSINESS APPLICATIONS ANALYST [address] [place], [place] [address] 04/29/2020 Routine Visit Obstetrics & Rosalia Young MD Gynecology [address] [place] [address] [address] [place], [place] [address] [phone] 04/29/2020 Pump And Still Operator Visit Phlebotomy Rosalia Young MD [address] [place] [address] [address] [place] [address] [phone] 2, [facility] Health Maintenance Due Date Last Done Comments INFLUENZA VACCINE (#1) 2020 DTaP,Tdap,and Td Vaccines (1 03/10/2021 Pos tponed from 01/24/2011 - Tdap) (Alternative Keanu delines) Depression Screening 03/10/2021 03/10/2020 PAP SMEAR 03/10/2023 03/10/2020, 03/10/2020 PNEUMOCOCCAL 0-64 YEARS Aged Out No longe r eligible based COMBINED SERIES on patient's age to complete this to pic documented as of this encounter Results Not on filedocumented in this encounter Visit Diagnoses Diagnosis BV (bacterial vaginosis) - Primary Vaginitis and vulvovaginitis, unspecifie d Vaginal jj Candidiasis of vulva and vagina Urinary tract infection without hematuri a, site unspecified documented in this encounter Insurance Payer Benefit Plan / Subscriber ID Effective Dates Phone Addre ss Type Group [employer] MEDICAID OF [id number] 2020-Present [phone] [address] Medicaid [place] [id number] [place] [phone] documented as of this encounter Advance Directives Name Relationship Healthcare Agent Communication Relationship Kaitlin Aguirre Other Health Care Agent
--- OUTSIDE RECORDS SUMMARY | 2020-04-29 00:23 | XMS REPORT | Summary of Care ---
:1990 Author Organization [facility] - Health Address [address] [place] [address] Care Team Providers Name Role Phone Padma Dumontdoris Sargent [facility] Primary Care Provider Encounter Details Date Type Department Care Team Description 03/10/2020 Orders Only [facility] Doctor Unassigned, No [address] [facility] [place] [address] [address] [place] [address] Allergies No Known Allergiesdocumented as of this encounter (statuses as of 04/07/2020) Medications No known medicationsdocumented as of this encounter (statuses as of 04/07/2020) Active Problems Problem Noted Date Normal , first 03/10/2020 Nausea 03/10/2020 Screening for viral disease 03/10/2020 Estimated Date of Delivery Comments Yes 11/17/2020 Based on Ultrasound documented as of this encounter (statuses as of 04/07/2020) Resolved Problems Problem Noted Date Resolved Date Primigravida in first trimester 03/10/2020 04/01/20 20 documented as of this encounter (statuses as of 04/07/2020) Social History Tobacco Use Types Packs/Day Years [...] Treatment Date Type Specialty Care Team Description 04/29/2020 Routine Visit Obstetrics & Rosalia Young MD Gynecology [address] [place] [address] [address]. [address] [place], [place] [address] [phone] 04/29/2020 Tube Handler Visit Phlebotomy Rosalia Young MD [address] [place] [address] [address] [place] [address] [phone] 2, [facility] Health Maintenance Due Date Last Done Comments INFLUENZA VACCINE (#1) 2020 DTaP,Tdap,and Td Vaccines (1 03/10/2021 Pos tponed from 01/24/2011 - Tdap) (Alternative Keanu delines) Depression Screening 03/10/2021 03/10/2020 PAP SMEAR 03/10/2023 03/10/2020, 03/10/2020 PNEUMOCOCCAL 0-64 YEARS Aged Out No longe r eligible based COMBINED SERIES on patient's age to complete this to [facility] documented as of this encounter Procedures Procedure Name Priority Date/Time Associated Diagnosis Comme nts REPORT OF Routine 03/10/2020 12:01 AM CDT documented in this encounter Results Not on filedocumented in this encounter Insurance Payer Benefit Plan / Subscriber ID Effective Dates Phone Addre ss Type Group [facility] MEDICAID OF [id number] 2020-Present [phone] Medicaid [place] [id number] [place] [id number] documented as of this encounter Advance Directives Name Relationship Healthcare Agent Communication Relationship Kaitlin Aguirre Other Health Care Agent
--- OUTSIDE RECORDS SUMMARY | 2020-04-29 00:23 | XMS REPORT | Summary of Care ---
:1990 Author Organization [facility] Address [address] [place] [address] Care Team Providers Name Role Phone Kylie Dumont [facility] Primary Care Provider Reason for Visit Reason Comments ULTRASOUND (Routine) Status Reason Specialty Diagnoses / Referred By Referred To Procedures Contact Contact Closed Maternal Diagnoses Supervision of high risk in first trimester Kylie Dumont Medicine Procedures CONSULT MATERNAL MEDICINE ULTRASOUND Preferred Location: [facility] [address] [place] [address] Encounter Details Date Type Department Care Team Description 04/14/2020 [facility] Mcneill, Pr jing size-date Ultrasound- Eveline COLLINS discrepancy in first 110[address] [facility] [address] [place] [phone] Allergies No Known Allergiesdocumented as of this encounter (statuses as of 04/14/2020) Medications Medication Sig Dispensed Refills Start Date End Date Status vit Take 1 Packet by 30 Each 6 03/24/2020 Active 05-rxnu-vnagm-dha mouth daily. (SELECT-OB + DHA) 29 mg iron-1 mg -250 mg combo packIndications: Supervision of high risk in first trimester Nitrofurantoin&Nit. Take 1 capsule 14 capsule 0 04/01/2020 Active Macrocryst (MACROBID) by mouth 2 (two) 100 mg times daily. capsuleIndications: Dysuria metroNIDAZOLE 500 mg Take 1 tablet by 14 tablet 0 04/05/2020 Active tabletIndications: BV mouth every 12 (bacterial vaginosis) (twelve) hours. cephALEXin 500 mg Take 1 capsule 14 capsule 0 04/05/2020 Active capsuleIndications: by mouth 4 Urinary tract infection (four) times without hematuria, site daily. unspecified documented as of this encounter (statuses as of 04/14/2020) Active Problems Problem Noted Date Normal , first 03/10/2020 Nausea 03/10/2020 Screening for viral disease 03/10/2020 Estimated Date of Delivery Comments Yes 11/17/2020 Based on Ultrasound documented as of this encounter (statuses as of 04/14/2020) Resolved Problems Problem Noted Date Resolved Date Primigravida in first trimester 03/10/2020 04/01/20 20 documented as of this encounter (statuses as of 04/14/2020) Social History Tobacco Use Types Packs/Day Years Used Date Former Smoker Quit: 02/19/20 Smokeless Tobacco: Former User Alcohol Use Drinks/Week oz/Week Comments Not Currently Estimated Date of Delivery Comments Yes 11/17/2020 Based on Ultrasound Sex Assigned at Date Recorded Not on file COVID-19 Exposure Response Date Recorded In the last month, have you been in contact with No / Unsure 04/07/2020 5:28 PM CDT someone who was confirmed or suspected to have Coronavirus / COVID-19? documented as of this encounter Last Filed Vital Signs Not on filedocumented in this encounter Plan of Treatment Date Type Specialty Care Team Description 04/29/2020 Routine Visit Obstetrics & Rosalia Young MD Gynecology [address] [place] [address] [address] [place], [place] [address] [phone] 04/29/2020 Implant Coordinator Visit Phlebotomy Rosalia Young MD [address] [place] [address] [address] [place] [address] [phone] 2, [facility] Health Maintenance Due Date [...] filedocumented in this encounter Visit Diagnoses Diagnosis Uterine size-date discrepancy in first t rimester Uterine size date discrepancy, antepartu m condition or complication documented in this encounter Insurance Payer Benefit Plan / Subscriber ID Effective Dates Phone Addre ss Type Group [facility] MEDICAID OF [id number] 2020-Present [phone] [address] Medicaid [place] [id number] [place] [phone] documented as of this encounter Advance Directives Name Relationship Healthcare Agent Communication Relationship Kaitlin Aguirre Other Health Care Agent
--- OUTSIDE RECORDS SUMMARY | 2020-04-29 00:23 | XMS REPORT | Summary of Care ---
:1990 Author Organization [facility] - Health Address [address] [place] [address] Care Team Providers Name Role Phone Ginny Dumontmari Sargent [facility] Primary Care Provider Encounter Details Date Type Department Care Team Description 04/01/2020 Orders Only [facility] Doctor Unassigned, No 301 [facility] [place] [address] [address] [place] [address] Allergies No Known Allergiesdocumented as of this encounter (statuses as of 04/09/2020) Medications Medication Sig Dispensed Refills Start Date End Date Status vit Take 1 Packet by 30 Each 6 03/24/2020 Active 16-mjic-uqyne-dha mouth daily. (SELECT-OB + DHA) 29 mg iron-1 mg -250 mg combo packIndications: Supervision of high risk in first trimester Nitrofurantoin&Nit. Take 1 capsule by 14 capsule 0 04/01/2020 Active Macrocryst (MACROBID) mouth 2 (two) 100 mg times daily. capsuleIndications: Dysuria documented as of this encounter (statuses as of 04/09/2020) Active Problems Problem Noted Date Normal , first 03/10/2020 Nausea 03/10/2020 Screening for viral disease 03/10/2020 Estimated Date of Delivery Comments Yes 11/17/2020 Based on Ultrasound documented as of this encounter (statuses as of 04/09/2020) Resolved Problems Problem Noted Date Resolved Date Primigravida in first trimester 03/10/2020 04/01/20 20 documented as of this encounter (statuses as of 04/09/2020) Social History Tobacco Use Types Packs/Day Years [...] Treatment Date Type Specialty Care Team Description 04/14/2020 Operational Assistant Visit Maternal Medicine 04/29/2020 Routine Visit Obstetrics & Rosalia Young MD Gynecology [address] [place] [address] [address] [place], [place] [address] [phone] 04/29/2020 Operational Assistant Visit Phlebotomy Rosalia Young MD [address] [place] [address] [address] [place] [address] [phone] 2, [facility] Health Maintenance Due Date Last Done Comments INFLUENZA VACCINE (#1) 2020 DTaP,Tdap,and Td Vaccines (1 03/10/2021 Pos tponed from 01/24/2011 - Tdap) (Alternative Keanu delines) Depression Screening 03/10/2021 03/10/2020 PAP SMEAR 03/10/2023 03/10/2020, 03/10/2020 PNEUMOCOCCAL 0-64 YEARS Aged Out No longe r eligible based COMBINED SERIES on patient's age to complete this to [facility] documented as of this encounter Procedures Procedure Name Priority Date/Time Associated Diagnosis Comme nts [facility] ULTRASOUND Routine 04/01/2020 12:01 AM CDT documented in this encounter Results Not on filedocumented in this encounter Insurance Payer Benefit Plan / Subscriber ID Effective Dates Phone Addre ss Type Group [facility] MEDICAID OF [id number] 2020-Present [phone] [address] Medicaid [place] [id number] [place] [phone] documented as of this encounter Advance Directives Name Relationship Healthcare Agent Communication Relationship Kaitlin Aguirre Other Health Care Agent
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
== END 2020-04-25 06:49 | disposition home or self-care (01) ==
LOC: ER 04:23
DX: O02.1 Missed abortion (principal); O23.41 Unspecified infection of urinary tract in pregnancy, first trimester; Z3A.09 9 weeks gestation of pregnancy
CPT/HCPCS: 87088; 85025; 87086; 80048; 36415; 86900; 86901; 84702; 76801; 96374; 99284; J0696; 81003; 81015